=== PATIENT | male | born 1990 | race Two or more races ===

== ENCOUNTER 2016-05-09 07:53 | Outpatient (CLI) | payer OTHER | END 2016-05-09 23:59 | disposition home or self-care (01) | LOC: WOU 07:53 | PROVIDERS: ATTEND Podiatrist Foot & Ankle Surgery | DX: S93.402A Sprain of unspecified ligament of left ankle, initial encounter (principal); W50.2XXA Accidental twist by another person, initial encounter; Y92.89 Other specified places as the place of occurrence of the external cause | CPT/HCPCS: 73600-TC; 73630-TC; G0463 ==

== ENCOUNTER 2016-05-25 08:04 | Outpatient (CLI) | payer OTHER | END 2016-05-25 23:59 | disposition home or self-care (01) | LOC: WOU 08:04 | PROVIDERS: ATTEND Podiatrist Foot & Ankle Surgery | DX: M65.872 Other synovitis and tenosynovitis, left ankle and foot (principal); Q68.8 Other specified congenital musculoskeletal deformities; R60.0 Localized edema | CPT/HCPCS: G0463 ==

== ENCOUNTER 2016-06-29 08:47 | Outpatient (CLI) | payer OTHER | END 2016-06-29 23:59 | disposition home or self-care (01) | LOC: WOU 08:47 | PROVIDERS: ATTEND Podiatrist Foot & Ankle Surgery | DX: M21.40 Flat foot [pes planus] (acquired), unspecified foot (principal); L85.3 Xerosis cutis | CPT/HCPCS: G0463 ==